=== PATIENT | female | born 1975 | race Caucasian/White ===

== ENCOUNTER 2017-11-08 19:14 | Emergency (ER) | payer SELFPAY ==
--- NOTE | 2017-11-08 19:30 | ED Physician Documentation ---
General Adult - HISTORIAN Historian: patient - HPI Stated Complaint: right foot pain after accident at work Chief Complaint: Lower Extremity Injury Onset: days ago (1) Timing: still present Severity: mild Further Comments: yes (She states she was at work and a co worker dropped a pallet on her right foot and she is having increasing pain. She states pain with sitting is "ok" but when she stands and bears weight it is 8/10. She took Ibuprofen this am. She denies any other complaints.) Last known Well Code/Unknown Code: Unknown - ROS CONST: no problems EYES/ENT: none CVS/RESP: none GI/: none MS/SKIN/LYMPH: none NEURO/PSYCH: denies: headache, fainting, dizziness - PAST HX Past History: none Other History: none Surgeries/Procedures: none Immunizations: UTD Allergies/Adverse Reactions: Allergies Allergy/AdvReac Type Severity Reaction Status Date / Time Penicillins Allergy Rash Verified 11/08/17 19:28 Home Medications: Ambulatory Orders Medication Instructions Recorded NK [NK] 11/08/17 - SOCIAL HX Smoking History: non-smoker Alcohol Use: none - FAMILY HX Family History: No - REVIEWED ASSESSMENTS Nursing Assessment Reviewed: Yes Vitals Reviewed: Yes ED Results Lab/Radiology - Radiology Radiology Impressions: Right foot, three views. History: RIGHT FOOT PAIN, DROPPED PALLET AT WORK ON FOOT ON 11/06/17 Findings: The osseous structures are intact without acute fracture. The joint space and alignment are normal. There is no soft tissue swelling. Impression: 1. No acute osseous abnormality. Electronically signed on Nov 08, 2017 8:02:01 PM CDT by: Lisandro Vivar General Adult Physical Exam - PHYSICAL EXAM GENERAL APPEARANCE: mild distress EENT: eye inspection normal, ENT inspection normal NECK: normal inspection RESPIRATORY: no resp distress, chest non-tender, breath sounds normal CVS: reg rate & rhythm, heart sounds normal, equal pulses, no murmur ABDOMEN: soft BACK: normal inspection SKIN: warm/dry, normal color EXTREMITIES: non-tender, no evidence of injury, no edema, other (right foot - midfoot pain with palpation. She has +cap refill. Sensation + Decrease ROM with great and second toe ) NEURO: oriented X3, CN's nml as tested, motor nml, sensation nml, mood/affect nml, cognition normal Discharge Clincal Impression: Right foot pain Referrals: Primary Doctor,No [Primary Care Provider] - 2 Days Comments: 1. Keep foot elevated and ice when able 2. See PCP in 2-4 days for continued pain 3. Return to ER for any concerns 4. OTC meds for pain as needed Condition: Stable Disposition: 01 HOME, SELF-CARE Decision to Admit: NO Date of Decison to Admit: 11/08/17 Decision Time: 20:10
[2017-11-08 19:34] VITALS: BP 115/70
--- NOTE | 2017-11-09 05:22 | Diagnostic Imaging Report ---
KAREEN BARRETT [facility] [id number] [facility] [address] [id number] Report Submission Date: Nov 08, 2017 8:02:01 PM CDT Patient Study Name: JANUSZ GAONA Date: Nov 08, 2017 7:39:39 PM CDT Modality Type: DX Gender: F Description: LOWER EXTREMITY : 79 Institution: [facility] Physician: KAREEN BARRETT Right foot, three views. History: RIGHT FOOT PAIN, DROPPED PALLET AT WORK ON FOOT ON 11/06/17 Findings: The osseous structures are intact without acute fracture. The joint space and alignment are normal. There is no soft tissue swelling. Impression: 1. No acute osseous abnormality. Electronically signed on Nov 08, 2017 8:02:01 PM CDT by: Lisandro WOODSON
== END 2017-11-08 20:10 | disposition home or self-care (01) ==
LOC: ED 19:14
DX: M79.671 Pain in right foot (principal); W23.1XXA Caught, crushed, jammed, or pinched between stationary objects, initial encounter; Y92.69 Other specified industrial and construction area as the place of occurrence of the external cause; Y93.9 Activity, unspecified; Y99.9 Unspecified external cause status; Z04.2 Encounter for examination and observation following work accident
CPT/HCPCS: 73630; 99283